=== PATIENT | female | born 1985 | race Caucasian/White ===

== ENCOUNTER 2019-04-23 10:50 | Outpatient (RCR) | payer MEDICAID | END 2019-07-22 | disposition still patient (30) | LOC: WSST | DX: R19.7 Diarrhea, unspecified (principal); R12 Heartburn; R11.0 Nausea; R47.02 Dysphasia ==

== ENCOUNTER → 2019-05-07 | Outpatient (CLI) | payer MEDICAID | LOC: COL.RAD 05-06 14:30 | DX: R13.14 Dysphagia, pharyngoesophageal phase (principal); R13.12 Dysphagia, oropharyngeal phase; R19.7 Diarrhea, unspecified; R12 Heartburn; R47.02 Dysphasia; R11.0 Nausea ==

== ENCOUNTER 2021-08-11 13:28 | Outpatient (RCR) | payer MEDICAID | END 2021-08-16 | disposition home or self-care (01) | LOC: WSST | DX: R13.10 Dysphagia, unspecified (principal); K58.0 Irritable bowel syndrome with diarrhea; R10.9 Unspecified abdominal pain ==

== ENCOUNTER → 2021-08-19 | Outpatient (CLI) | payer MEDICAID | LOC: COL.RAD 11:55 | DX: K58.0 Irritable bowel syndrome with diarrhea (principal) ==

== ENCOUNTER 2021-09-07 12:45 | Outpatient (RCR) | payer MEDICAID | END 2021-09-13 | disposition home or self-care (01) | LOC: WSST | DX: R13.10 Dysphagia, unspecified (principal) ==

== ENCOUNTER 2021-10-13 14:00 | Outpatient (RCR) | payer MEDICAID | END 2021-10-14 | disposition home or self-care (01) | LOC: WSST | DX: R13.10 Dysphagia, unspecified (principal); K58.0 Irritable bowel syndrome with diarrhea; R10.9 Unspecified abdominal pain ==